=== PATIENT | female | born 1930 | race Caucasian/White ===

== ENCOUNTER 2019-07-13 12:26 | Outpatient (CLI) | payer MEDICARE | END 2019-07-13 23:59 | disposition home or self-care (01) | LOC: CARD DIAG 12:26 | PROVIDERS: ATTEND Internal Medicine Cardiovascular Disease | DX: I08.8 Other rheumatic multiple valve diseases (principal) | CPT/HCPCS: 93306 ==

== ENCOUNTER 2019-10-04 05:33 | Day surgery (SDC) | payer MEDICARE ==
[2019-10-03 16:11] LABS: BASOPHILS % (AUTO) 0.8 % (0-1); EOSINOPHILS # (AUTO) 0.3 X10'3 (0-0.9); EOSINOPHILS % (AUTO) 4.1 % (0-6); HEMATOCRIT 40.8 % (35.0-45.0); HEMOGLOBIN 13.6 g/dl (12.0-16.0); LYMPHOCYTES # (AUTO) 1.7 X10'3 (1.1-4.8); LYMPHOCYTES % (AUTO) 27.4 % (21-51); MEAN CORPUSCULAR HEMOGLOBIN 29.4 PG (27.0-31.0); MEAN CORPUSCULAR HGB CONC 33.4 g/dL (33.0-36.5); MEAN CORPUSCULAR VOLUME 87.8 FL (78-98); MEAN PLATELET VOLUME 9.2 FL (7.4-10.4); MONOCYTES # (AUTO) 0.7 X10'3 (0-0.9); MONOCYTES % (AUTO) 10.4 % (2-12); NEUTROPHILS # (AUTO) 3.6 X10'3 (1.8-7.7); NEUTROPHILS % (AUTO) 57.3 % (42-75); PLATELET COUNT 254 X10'3 (140-440); RED BLOOD COUNT 4.65 X10'6 (4.20-5.60); RED CELL DISTRIBUTION WIDTH 16.2 % (11.5-14.5); WHITE BLOOD COUNT 6.3 X10'3 (4.5-11.0)
[2019-10-03 16:34] LABS: ALBUMIN 3.4 G/DL (3.4-5.0); ANION GAP 7 (8-16); BLOOD UREA NITROGEN 31 MG/DL (7-18); BUN/CREATININE RATIO 28.7 (6.6-38.0); CALCIUM 9.3 MG/DL (8.5-10.1); CHLORIDE 106 MMOL/L (99-107); CREATININE 1.08 MG/DL (0.40-0.90); GLUCOSE 93 MG/DL (70-104); PARTIAL THROMBOPLASTIN TIME 27 SECONDS (22-32); POTASSIUM 4.5 MMOL/L (3.5-5.1); SODIUM 141 MMOL/L (135-145); TOTAL CARBON DIOXIDE 28.1 MMOL/L (24-32); eGFR 48 ML/MIN
[2019-10-04] VITALS (15 sets, daily range): BP systolic 142–172; BP diastolic 62–89
[~2019-10-04] VITALS: Ht 160 cm; Wt 67.3 kg
[2019-10-04] MEDS ORDERED: LIDOcaine/PRILOcaine 5gm cream TP ONE (06:20)
[2019-10-04] MEDS ORDERED: diphenhydrAMINE 25mg capsule PO PRN (06:25)
[2019-10-04] MEDS ORDERED: acetylcysteine 200 MG/ml 4ml vial PO PRN (06:25)
[2019-10-04] MEDS ORDERED: LORazepam 0.5 MG tablet PO PRN (06:25)
[2019-10-04] MEDS ORDERED: verapamil 2.5 mg/ml inj IV ONE (06:47)
[2019-10-04] MEDS ORDERED: fentaNYL/PF 50MCG/1 ML 2ML syringe ONE (06:47)
[2019-10-04] MEDS ORDERED: LIDOcaine 1% (10mg/ml)w/preservative injection 20ml MDV ONE (06:47)
[2019-10-04] MEDS ORDERED: nitroGLYCERIN-Tridil 50MG/D5W 250 ML IV ONE (06:47)
[2019-10-04] MEDS ORDERED: heparin 1,000unit/ml 10ml vial 10 ML ONE (06:47)
[2019-10-04] MEDS ORDERED: iohexol 350 MG/ML 50ML vial IV ONE ×2 (06:47→07:45)
[2019-10-04] MEDS ORDERED: iohexol 350MG/ML 100ml bottle IV ONE ×2 (06:47→10:35)
[2019-10-04] MEDS ORDERED: midazolam 2 mg/2 ml injection ONE (06:47)
[2019-10-04] MEDS ORDERED: CLOP75TA15 PO (06:52)
[2019-10-04] MEDS ORDERED: CALC600T12 PO (06:52)
[2019-10-04] MEDS ORDERED: POTA-82 PO (06:52)
[2019-10-04] MEDS ORDERED: FURO40TA4 PO (06:52)
[2019-10-04] MEDS ORDERED: ATOR40TA PO (06:52)
[2019-10-04] MEDS ORDERED: OLME40TA13 PO (06:52)
[2019-10-04] MEDS ORDERED: CARV-50 PO (06:52)
[2019-10-04] MEDS ORDERED: ASPI-257 PO (06:52)
[2019-10-04] MEDS ORDERED: ALLO100T PO (06:52)
[2019-10-04] MEDS ORDERED: OMEG1CAP46 PO (06:52)
[2019-10-04] MEDS ORDERED: sodium bicarbonate (8.4%) inj. 75 ML in dextrose 5% water 500ml 500 ML IV ONE (08:00)
[2019-10-04] MEDS ORDERED: normal saline 1000ml 1,000 ML IV SCH (08:40)
[2019-10-04 09:06] LABS: ISTAT HGB ART 13.6 g/dl (12.0-16.0); ISTAT Hct ART 40 %PCV (35-48); ISTAT Hct MIX 42 %PCV (35-48); ISTAT O2 SATURATION ARTERIAL 87 % (95-98); ISTAT O2 SATURATION MIX VENOUS 53 % (60-80); ISTAT SOURCE ART; ISTAT SOURCE MIX
[2019-10-04] MEDS ORDERED: furosemide 40mg/4ml inj IV ONE (14:00)
--- NOTE | 2019-10-04 14:00 | NUR ---
CALLED TO SPEAK TO DR MCDUFFIE REGARDING PT D/C-UNABLE TO GET SATS ABOVE 88% W/OUT 1-2L SUPPLEMENTAL O2 VIA NASAL CANNULA-PT C/O MILD SOB W/EXERTION-LUNGS CTA-LASIX 40MG IVP X1 NOW ORDERED/ADMINISTERED-PT VOID X2 @ THIS TIME-
== END 2019-10-04 18:50 | disposition home or self-care (01) ==
LOC: SSTAY O 05:33
PROVIDERS: ATTEND Internal Medicine Cardiovascular Disease
DX: R94.39 Abnormal result of other cardiovascular function study (principal); I25.10 Atherosclerotic heart disease of native coronary artery without angina pectoris; E78.5 Hyperlipidemia, unspecified; I10 Essential (primary) hypertension; E11.9 Type 2 diabetes mellitus without complications; I42.8 Other cardiomyopathies; I48.0 Paroxysmal atrial fibrillation; M10.9 Gout, unspecified; M19.90 Unspecified osteoarthritis, unspecified site; Z79.899 Other long term (current) drug therapy; Z82.49 Family history of ischemic heart disease and other diseases of the circulatory system; Z80.9 Family history of malignant neoplasm, unspecified
CPT/HCPCS: 36415; 71275; 74174; 80048; 82803; 85014; 85025; 85610; 85730; 93005; 93460; 93567; 93880; 99152; 99153; C1769; C1894; J1644; J1940; J2001; J2250; J3010; J7030; Q0163; Q9967; A4620; C1760; J3490

== ENCOUNTER 2021-03-25 15:51 | Outpatient (CLI) | payer MEDICARE ==
[~2021-03-25 15:51] MED LIST: ALLO100T PO; ASPI-257 PO; ATOR40TA PO; CALC600T35 PO; CARV-50 PO; CLOP75TA15 PO; FURO40TA4 PO; OLME40TA13 PO; OMEG1CAP46 PO; POTA-82 PO
== END 2021-03-25 23:59 | disposition home or self-care (01) ==
LOC: CARD DIAG 15:51
PROVIDERS: ATTEND Internal Medicine Cardiovascular Disease
DX: I08.0 Rheumatic disorders of both mitral and aortic valves (principal); I50.22 Chronic systolic (congestive) heart failure
CPT/HCPCS: 93306